=== PATIENT | male | born 2000 | race Two or more races ===

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

== ENCOUNTER 2022-01-05 19:17 | Emergency (ER) | payer MEDICAID ==
[~2022-01-05] VITALS: Ht 185.4 cm; Wt 68.0 kg
[2022-01-05 19:18] VITALS: BP 124/86
[2022-01-05] MEDS ORDERED: BUPIVACAINE W/ EPINEPH 0.25% INJ 50ML MDV IJ ONE (21:00)
== END 2022-01-06 00:27 | disposition left against medical advice (07) ==
LOC: ER 19:17
DX: S01.81XA Laceration without foreign body of other part of head, initial encounter (principal); Z53.21 Procedure and treatment not carried out due to patient leaving prior to being seen by health care provider; X58.XXXA Exposure to other specified factors, initial encounter; Y93.89 Activity, other specified; Y92.89 Other specified places as the place of occurrence of the external cause; Y99.8 Other external cause status